=== PATIENT | male | born 1965 | race Caucasian/White ===

== ENCOUNTER 2025-05-14 01:47 | Day surgery (SDC) | payer MEDICARE, SELFPAY ==
--- OUTSIDE RECORDS SUMMARY | 2024-04-10 09:30 | XMS_ITS ---
Author Organization [facility] Address [address] [address] Care Team Providers Care Workforce Planner Name Role Phone Dung Alves Unavailable [phone] Problems Problem Type SNOMED Code ICD Code Onset Dates Problem Status W/U Status Risk Notes Problem Chronic kidney disease stage 2 (565015427) Chronic kidney disease, stage 2 (mild) (N18.2) Active confirmed Encounters Encounter Location Date Provider Diagnosis [facility] [address] [place] [address] 04/10/2024 Dung Alves Chronic kidney disea se, [...] unspecified (ICD-10 - I50.9) Plan Of Treatment Next Appt Details Provider Name:Dung Alves , 05/19/2025 02:30:00 PM, [address] [facility], [address], [place], [address], Progress Notes * Alexys COUCHDOB: [birth year] (60 yo F)Acc No.[id number]:04/10/2024 Progress Notes Patient: Alexys DAMICO Provider: Vee GOULD MD, F.A.C.P, F.A.S.N. :1965 A ge:59 Y S ex:Female Date:04/10/2024 Address:[address] [place] [address] Subjective: * Chief Complaints: * * Medical [...] Electronic signature of Venu Alves MD on 05/14/2025 at 01:51 AM CDT Sign off status: Pending * Provider: Vee GOULD MD, F.William.C.P, F.A.S.N. Date: 04/10/2024 Generated for Printing/Faxing/eTransmitting on: 0 05/14/2025 01:51 AM CDT
--- OUTSIDE RECORDS SUMMARY | 2024-06-12 09:30 | XMS_ITS ---
Author Organization [facility] Address [address] [place] [address] Care Team Providers Care Gunner'S Mate G Name Role Phone Long Dung Unavailable [phone] Medications Medication SIG (Take, Route, Frequency, Duration) Notes Start Date End Date Status Ergocalciferol 1.25 MG (28120 UT) 1 capsule Orally Once a week; Duration: 90 day(s) 12/06/2023 08/31/2024 Active Losartan Potassium 50 MG 1 tablet Orally Once a day; Duration: 90 12/06/2023 Active Calcitriol 0.25 MCG 1 capsule Orally Onc e a day; Duration: 90 day(s) 12/06/2023 08/31/2024 Active Encounters Encounter Location Date Provider Diagnosis [place] [facility] [address] [facility] 15 [place] [address] 06/12/2024 Dung Alves Chronic kidney disease, stage [...] Name:Dung Alves , 05/19/2025 02:30:00 PM, [address] [facility], [address], [place], [address], Progress Notes * Alexys COUCHDOB: [birth year] (60 yo F)Acc No.[id number]:06/12/2024 Progress Notes Patient: Alexys DAMICO Provider: Vee GOULD MD, F.A.C.P, F.A.S.N. :1965 A ge:59 Y S ex:Female Date:06/12/2024 Address:[address] [place] [address] Subjective: * Chief Complaints: * * Medical History: * Medications: T aking Ergocalciferol 1.25 MG (76068 UT) Capsule 1 capsule Orally Once a [...] Treatment: * Billing Information: * Visit Code: 33464 Office Visit, Est Pt., Level 4. * Procedure Codes: * Electronic signature of Venu Alves MD on 05/14/2025 at 01:50 AM CDT Sign off status: Pending * Provider: Vee GOULD MD, F.A.C.P, F.A.S.N. Date: Generated for Printing/Faxing/eTransmitting on: 0 05/14/2025 01:50 AM CDT
--- OUTSIDE RECORDS SUMMARY | 2024-08-19 11:00 | XMS_ITS ---
Author Organization [facility] Address [address] [place] [address] Care Team Providers Care Art Historian Name Role Phone Dung Alves Unavailable [phone] Medications Medication SIG (Take, Route, Frequency, Duration) Notes Start Date End Date Status Losartan Potassium 50 MG 1 tablet Orally Once a day; Duration: 90 12/06/2023 Active Vitamin D (Ergocalciferol) 1.25 MG (92780 UT) TAKE 1 CAPSULE BY MOUTH 1 TIME A WEEK; Duration: 91 Active Calcitriol 0.25 MCG 1 capsule Orally Onc e a day; Duration: 90 day(s) 12/06/2023 08/31/2024 Active Vitamin D (Ergocalciferol) 72834 UNIT 1 capsule Orally twice a week; Duration: 30 days 06/19/2024 10/16/2024 Active Problems Problem Type SNOMED Code ICD Code Onset Dates Problem Status W/U Status Risk Notes Problem Type II diabetes mellitus without complication (750571719) Type 2 diabetes mellitus without complications (E11.9) Active confirmed Encounters Encounter Location Date Provider Diagnosis [place] [facility] [address] [facility] 15 [place] [address] 08/19/2024 Dung Alves Chronic kidney disease, stage [...] unspecified (ICD-10 - R80.9) Plan Of Treatment Next Appt Details Provider Name:Dung Alves , 05/19/2025 02:30:00 PM, 2043 [facility], [facility], [place], [address], Progress Notes * Alexys COUCHDOB: [birth year] (60 yo F)Acc No.[id number]:08/19/2024 Progress Notes Patient: Alexys DAMICO Provider: Vee GOULD MD, F.William.C.P, F.A.S.N. :1965 A ge:59 Y S ex:Female Date:08/19/2024 Address:[address] [place] [address] Subjective: * Chief Complaints: * * Medical History: * Medications: T aking Losartan Potassium 50 MG Tablet 1 tablet Orally Once a day , Taking Calcitriol 0.25 MCG Capsule 1 capsule Orally Once a day , stop date 08/31/2024, Taking Vitamin D (Ergocalciferol) 1.25 MG (58756 UT) Capsule TAKE 1 CAPSULE BY MOUTH 1 TIME A WEEK , Taking Vitamin D (Ergocalciferol) 41887 UNIT Capsule 1 capsule Orally twice a week , stop date 10/16/2024 Objective: * Vitals: Assessment: * Assessment: 1. C hronic kidney disease, stage 2 (mild) - N18.2 2 . T ype 2 diabetes mellitus without complications - E11.9 3 . E ssential (primary) hypertension - I10? 4. P roteinuria, unspecified - R80.9 Plan: * Treatment: * Billing Information: * Visit Code: 49703 Office Visit, Est Pt., Level 4. * Procedure Codes: * Electronic signature of Venu Alves MD on 05/14/2025 at 01:50 AM CDT Sign off status: Pending * Provider: Vee GOULD MD, John.William.C.P, F.A.S.N. Date: 10/20/2023 Generated for Printing/Faxing/eTransmitting on: 05/14/2025 01:50 AM CDT
--- OUTSIDE RECORDS SUMMARY | 2024-11-25 09:15 | XMS_ITS ---
Author Organization [facility] Address [address] [place] [address] Care Team Providers Care Boat Detailer Name Role Phone Long Dung Unavailable [phone] Problems Problem Type SNOMED Code ICD Code Onset Dates Problem Status W/U Status Risk Notes Problem Proteinuria (00391636) Proteinuria, unspecified (R80.9) Active confirmed Problem Benign prostatic hypertrophy without outflow obstruction (313175027) Benign prostatic hyperplasia without lower urinary tract symptoms (N40.0) Active confirmed Problem Calculus of kidney (42019887) Calculus of kidney (N20.0) Active confirmed Encounters Encounter Location Date Provider Diagnosis [place] [facility] 2043 [facility] 15 [place] [address] 11/25/2024 Dung Alves Chronic kidney disease, stage [...] kidney (ICD-10 - N20.0) Plan Of Treatment Next Appt Details Provider Name:Dung Alves , 05/19/2025 02:30:00 PM, 2043 [facility], [address], [place], [address], Progress Notes * Alexys COUCHDOB: [birth year] (60 yo F)Acc No.[id number]:11/25/2024 Progress Notes Patient: Alexys DAMICO Provider: Vee GOULD MD, F.A.C.P, F.A.S.N. :1965 A ge:59 Y S ex:Female Date:11/25/2024 Address:[facility] [address] Subjective: * Chief Complaints: * * Medical [...] Treatment: * Billing Information: * Visit Code: 83447 Office Visit, Est Pt., Level 5. * Procedure Codes: * Electronic signature of Venu Alves MD on 05/14/2025 at 01:50 AM CDT Sign off status: Pending * Provider: Vee GOULD MD, F.A.C.P, F.A.S.N. Date: 11/25/2024 Generated for Printing/Faxing/eTransmitting on: 05/14/2025 01:50 AM CDT
--- OUTSIDE RECORDS SUMMARY | 2025-02-24 09:30 | XMS_ITS ---
Author Organization [facility] Address [address] [place] [address] Care Team Providers Care Benefits Sales Consultant Name Role Phone Dung Alves Unavailable [phone] Encounters Encounter Location Date Provider Diagnosis [place] [facility] [address] [facility] [address] [place] [address] 02/24/2025 Dung Alves Chronic kidney disease, stage 2 [...] Treatment Notes Treatment Clinical Notes Section Notes 02/24/2025 Chronic kidney disease, stage 2 (mild) (ICD-10 - N18.2) 02/24/2025 Essential (primary) hypertension (ICD-10 - I10) 02/24/2025 Type 2 diabetes mellitus without complications (ICD-10 - E11.9) 02/24/2025 Obesity, unspecified (ICD-10 - E66.9) 02/24/2025 Heart failure, unspecified (ICD-10 - I50.9) 02/24/2025 Proteinuria, unspecified (ICD-10 - R80.9) 02/24/2025 Benign prostatic hyperplasia without lower urinary tract symptoms (ICD-10 - N40.0) 02/24/2025 Calculus of kidney (ICD-10 - N20.0) Plan Of Treatment Next Appt Details Provider Name:Dung Alves , 05/19/2025 02:30:00 PM, 2043 [facility], [address], [place], [address], Progress Notes * Alexys COUCHDOB: [birth year] (60 yo F)Acc No.[id number]:02/24/2025 Progress Notes Patient: Alexys DAMICO Provider: Vee GOULD MD, JosefinaP, F.A.S.N. :1965 A ge:59 Y S ex:Female Date:02/24/2025 Address:[address] [place], [place] [email or web address] [address] Subjective: * Chief Complaints: * * Medical [...] Treatment: * Billing Information: * Visit Code: 42132 Office Visit, Est Pt., Level 4. * Procedure Codes: * Electronic signature of Venu Alves MD on 05/14/2025 at 01:50 AM CDT Sign off status: Pending * Provider: Vee GOULD MD, John.William.Navid.P, F.A.S.N. Date: 02/24/2025 Generated for Printing/Faxing/eTransmitting on: 0 05/14/2025 01:50 AM CDT
--- OUTSIDE RECORDS SUMMARY | 2025-05-14 01:51 | XMS_ITS | Clinical Summary ---
Author Organization [facility] Address [address] [facility] [place] [address] Care Team Providers Care Sales Support Assistant Name Role Phone Elmira Estevez SEGUNDO-TRAFFIC OR SYSTEM DISPATCHER Primary Care Provider [phone] Source Comments [facility],non-owned Affiliates and Associated Physician Practices is amultiple site organization consisting of ambulatory clinics and hospital sitesin [place], [place], [place] and [place]. This disclosure is being madepursuant to the Care Everywhere program and may not contain all information available regarding this patient. Last updated 18.[facility] Allergies No known active allergies Medications * Be aware that medications may not be up to date on this document. Alwaysverify current medications with the patient. tamsulosin (Flomax) 0.4 MG capsule 3 Active levothyroxine (Synthroid) 75 MCG tablet Take 1 (one) tablet by mouth every morning 3 Active FeroSul 325 (65 Fe) MG tablet Take 1 (one) tablet by mouth 2 times daily 3 Active omeprazole (PriLOSEC) 20 MG capsule Take 1 (one) capsule by mouth daily before breakfast 3 Active atorvastatin (Lipitor) 20 MG tablet TAKE 1 TABLET BY MOUTH EVERY OTHER DAY AT BEDTIME 3 Active meloxicam (Mobic) 7.5 MG tablet TAKE 1 TABLET BY MOUTH EVERY DAY WITH FOOD NEEDED 3 Active ascorbic acid (VITAMIN C) 500 MG tablet Take 1 (one) tablet by mouth once daily 2 Active losartan (Cozaar) 25 MG tablet Take 1 (one) tablet by mouth once daily 3 Active metFORMIN ER 24hr (Glucophage XR) 500 MG tablet Take 1 (one) tablet by mouth 3 times daily before meals 3 Active albuterol HFA (Proventil; Ventolin; Proair) 108 (90 Base) MCG/ACT inhaler Inhale 2 (two) puffs by mouth every 4 hours as needed 3 Active Ozempic, 2 MG/DOSE, 8 MG/3ML pen INJECT 2 MG UNDER THE SKIN ONCE WEEKLY AT DINNER FOR 90 DAYS. 3 Active Social History Tobacco Use Types Packs/Day Years Used Date Smoking Tobacco: Never Passive Smoke Exposure: Never Smokeless Tobacco: Never Tobacco Cessation:Counseling Given: Not Answered Sex and Gender Information Value Date Recorded Sex Assigned at Not on file Legal Sex Male 3:53 PM CDT Gender Identity Not on file Sexual Orientation Not on file Last Filed Vital Signs Vital Sign Reading Time Taken Comments Blood Pressure 124/84 08/28/2023 12:30 PM DROP CLIPPER Pulse 85 08/28/2023 12:30 PM DROP CLIPPER Temperature 36.8 C (98.3 F) 08/28/2023 12:30 PM DROP CLIPPER Respiratory Rate - - Oxygen Saturation 97% 08/28/2023 12:30 PM DROP CLIPPER Inhaled Oxygen Concentration - - Weight 145.2 kg (320 lb) 08/28/2023 12:30 PM DROP CLIPPER Height 182.9 cm (6') 08/28/2023 12:30 PM DROP CLIPPER Body Mass Index 43.4 08/28/2023 12:30 PM DROP CLIPPER Plan of Treatment Health Maintenance Due Date Last Done Comments COLOGUARD (AGES 45-75) - COLON CA SCREENING 1966 CT COLONOGRAPHY - COLON CA SCREENING 1966 FIT - COLON CA SCREENING 1966 FLEX SIG - COLON CA SCREENING 1966 HIV SCREENING 1981 HEPATITIS C SCREENING 02/28/1984 DTAP/TDAP/TD VACCINES (1 - Tdap) 1985 HEPATITIS B VACCINE (1 of 3 - 19+ 3-dose series) 1985 PNEUMOCOCCAL VACCINE 50+ (1 of 1 - PCV) 2016 ZOSTER VACCINE (1 of 2) 2016 SCREENING FOR DIABETES 07/26/2023 COVID-19 VACCINE (3 - 2024-25 season) 2024 01/05/2021, 12/05/2020 DEPRESSION SCREENING 09/09/2024 MEDICARE AWV CALENDAR YEAR 2024 INFLUENZA VACCINE (#1) 2025 3, 08/07/2022, 08/01/2021, Additional history exists COLON MONITORING 03/29/2030 03/29/2020 COLONOSCOPY - COLON CA SCREENING 03/29/2030 03/29/2020 Colorectal Cancer Screening 03/29/2030 HIB VACCINE Aged Out No longer eligi ble based on patient's age to complete this topic HPV VACCINE Aged Out No longer eligi ble based on patient's age to complete this topic MENINGOCOCCAL (Group B) VACCINE SHARED DECISION-MAKING Aged Out No longer eligible based on patient's age to complete this topic MENINGOCOCCAL GROUPS A/C/Y/W VACCINE Aged Out No longer eligible based on patient's age to complete this topic Insurance [facility] Care Teams Sales Support Assistant Relationship Specialty Start Date End Date Elmira Estevez APRN-ILIANA [address] [place] [address] PCP - General Nurse Practitioner Family 07/26/23
--- OUTSIDE RECORDS SUMMARY | 2025-05-14 01:51 | XMS_ITS | Patient Health Record ---
Author Organization [facility] Address [address] [place] [address] Care Team Providers Care Package Lift Operator Name Role Phone Dung Alves Unavailable [phone] Reason For Referral No Information Medications Medication SIG (Take, Route, Frequency, Duration) Notes Start Date End Date Status Losartan Potassium 50 MG 1 tablet Orally Once a day; Duration: 90 12/06/2023 Active Calcitriol 0.25 MCG TAKE 1 CAPSULE BY MO UTH DAILY; Duration: 90 Active Vitamin D (Ergocalciferol) 1.25 MG (04016 UT) TAKE 1 CAPSULE BY MOUTH 2 TIMES A WEEK; Duration: 28 Activ e Problems Problem Type SNOMED Code ICD Code Onset Dates Problem Status W/U Status Risk Notes Problem Type II diabetes mellitus without complication (402545421) Type 2 diabetes mellitus without complications (E11.9) Active confirmed Problem Obesity (326674331) Obesity, unspecified (E66.9) Active confirmed Problem Essential hypertension (24060939) Essential (primary) hypertension (I10) Active confirmed Problem Heart failure (57362087) Heart failure, unspecified (I50.9) Active confirmed Problem Chronic kidney disease stage 2 (056826530) Chronic kidney disease, stage 2 (mild) (N18.2) Active confirmed Problem Calculus of kidney (24004933) Calculus of kidney (N20.0) Active confirmed Problem Proteinuria (94454787) Proteinuria, unspecified (R80.9) Active confirmed Problem Benign prostatic hypertrophy without outflow obstruction (813390897) Benign prostatic hyperplasia without lower urinary tract symptoms (N40.0) Active confirmed Encounters Encounter Location Date Provider Diagnosis [facility] [address] [facility] [address] [place] [address] 06/12/2024 Dung Alves Chronic kidney disease, stage 3a N18.31 ; Essential (primary) hypertension I10 ; Obesity, unspecified E66.9 ; Chronic kidney disease, stage 2 (mild) N18.2 ; Morbid (severe) obesity due to excess calories E66.01 ; Type 2 diabetes mellitus with hyperglycemia E11.65 and Heart failure, unspecified I50.9 [facility] [address] [place] [address] 08/19/2024 Dung Alves Chronic kidney disease, stage 2 (mild) N18.2 ; Type 2 diabetes mellitus without complications E11.9 ; Essential (primary) hypertension I10 and Proteinuria, unspecified R80.9 [facility] [address] [place] [address] 11/25/2024 Dung Alves Chronic kidney disease, stage 2 (mild) N18.2 ; Essential (primary) hypertension I10 ; Type 2 diabetes mellitus without complications E11.9 ; Obesity, unspecified E66.9 ; Heart failure, unspecified I50.9 ; Proteinuria, unspecified R80.9 ; Benign prostatic hyperplasia without lower urinary tract symptoms N40.0 and Calculus of kidney N20.0 [facility] [address] [place] [address] 02/24/2025 Dung Alves Chronic kidney disease, stage 2 (mild) N18.2 ; Essential (primary) hypertension I10 ; Type 2 diabetes mellitus without complications E11.9 ; Obesity, unspecified E66.9 ; Heart failure, unspecified I50.9 ; Proteinuria, unspecified R80.9 ; Benign prostatic hyperplasia without lower urinary tract symptoms N40.0 and Calculus of kidney N20.0 [facility] [address] [place] [address] 06/19/2024 Dung Alves Assessments Encounter Date Diagnosis (ICD Code) Assessment Notes Treatment Notes Treatment Clinical Notes Section Notes 06/12/2024 Essential (primary) hypertension (ICD-10 - I10) 06/12/2024 Chronic kidney disease, stage 3a (ICD-10 - N18.31) 08/19/2024 Chronic kidney disease, stage 2 (mild) (ICD-10 - N18.2) 11/25/2024 Chronic kidney disease, stage 2 (mild) (ICD-10 - N18.2) 02/24/2025 Chronic kidney disease, stage 2 (mild) (ICD-10 - N18.2) 02/24/2025 Essential (primary) hypertension (ICD-10 - I10) 11/25/2024 Essential (primary) hypertension (ICD-10 - I10) 08/19/2024 Type 2 diabetes mellitus without complications (ICD-10 - E11.9) 06/12/2024 Obesity, unspecified (ICD-10 - E66.9) 06/12/2024 Chronic kidney disease, stage 2 (mild) (ICD-10 - N18.2) 08/19/2024 Essential (primary) hypertension (ICD-10 - I10) 11/25/2024 Type 2 diabetes mellitus without complications (ICD-10 - E11.9) 02/24/2025 Type 2 diabetes mellitus without complications (ICD-10 - E11.9) 02/24/2025 Obesity, unspecified (ICD-10 - E66.9) 11/25/2024 Obesity, unspecified (ICD-10 - E66.9) 08/19/2024 Proteinuria, unspecified (ICD-10 - R80.9) 06/12/2024 Morbid (severe) obesity due to excess calories (ICD-10 - E66.01) 06/12/2024 Type 2 diabetes mellitus with hyperglycemia (ICD-10 - E11.65) 11/25/2024 Heart failure, unspecified (ICD-10 - I50.9) 02/24/2025 Heart failure, unspecified (ICD-10 - I50.9) 11/25/2024 Proteinuria, unspecified (ICD-10 - R80.9) 02/24/2025 Proteinuria, unspecified (ICD-10 - R80.9) 06/12/2024 Heart failure, unspecified (ICD-10 - I50.9) 02/24/2025 Benign prostatic hyperplasia without lower urinary tract symptoms (ICD-10 - N40.0) 11/25/2024 Benign prostatic hyperplasia without lower urinary tract symptoms (ICD-10 - N40.0) 02/24/2025 Calculus of kidney (ICD-10 - N20.0) 11/25/2024 Calculus of kidney (ICD-10 - N20.0) Plan Of Treatment Next Appt Details Provider Name:Dung Singh , 05/19/2025 02:30:00 PM, [address], [place], [address],
--- OUTSIDE RECORDS SUMMARY | 2025-05-14 01:51 | XMS_ITS | Clinical Summary ---
Author Organization [facility] Address [address], [facility] [address] [place] [address] Phone Care Team Providers Care Central Service Technician Name Role Phone Ortiz Nava APRN, WASHTUB WORKER HELPER Unavailable [phone] Javier Zhang MD Primary Care Provider Allergies No known active allergies Medications albuterol 108 (90 Base) MCG/ACT Aerosol Solution take 2 Puffs by inhalation. 04/30/2023 Active ascorbic acid (ASCORBIC ACID) 500 MG Tablet Take 500 mg by mouth daily. 08/10/2022 Active atorvastatin (LIPITOR) 20 MG Tablet TAKE 1 TABLET BY MOUTH EVERY OTHER DAY AT BEDTIME 07/05/2023 Active ferrous sulfate (FeroSul) 325 (65 Fe) MG Tablet Take 325 mg by mouth 2 times daily. 07/16/2023 Active levothyroxine (SYNTHROID) 75 MCG Tablet Take 75 mcg by mouth every morning. 06/01/2023 Active losartan (COZAAR) 25 MG Tablet Take 25 mg by mouth daily. 05/31/2023 Active meloxicam (MOBIC) 7.5 MG Tablet TAKE 1 TABLET BY MOUTH EVERY DAY WITH FOOD NEEDED 06/12/2023 Active metFORMIN (GLUCOPHAGE-XR) 500 MG TABLET SR 24 HR Take 500 mg by mouth. 05/17/2023 Active omeprazole (PriLOSEC) 20 MG CAPSULE DELAYED RELEASE Take 20 mg by mouth. 06/12/2023 Active tamsulosin (FLOMAX) 0.4 MG Capsule 07/25/2023 Active Immunizations Immunization Administration Dates Next Due DTAP-IPV 06/20/2020 Influenza Vaccine, Quadrivalent, PF 06/10/2023,1 10/07/2021,08/01/2021 Influenza, Injectable, Quadrivalent 09/09/2019,1 09/23/2018 Influenza,Split Virus,Trivalent,Injectable,PF 07/30/2024 Zoster Vaccine Recombinant 11/28/2021,09/19/2021 Family History Medical History Relation Name Comments Leukemia/Lymphoma Paternal Grandmother Relation Name Status Comments Paternal Grandmother Alive Social History Tobacco Use Types Packs/Day Years Used Date Smoking Tobacco: Former Cigarettes Smokeless Tobacco: Never Tobacco Cessation:Counseling Given: Not Answered Alcohol Use Standard Drinks/Week Comments Not Currently 0 (1 standard drink = 0.6 oz pur e alcohol) Sexually Active Control Partners Comments Not Currently Sex and Gender Information Value Date Recorded Sex Assigned at Not on file Legal Sex Male 1:22 PM CDT Gender Identity Not on file Sexual Orientation Not on file Last Filed Vital Signs Vital Sign Reading Time Taken Comments Blood Pressure 135/80 02/02/2025 9:49 AM CDT Pulse 78 02/02/2025 9:49 AM CDT Temperature - - Respiratory Rate 18 02/02/2025 9:49 AM CDT Oxygen Saturation 97% 02/02/2025 9:49 AM CDT Inhaled Oxygen Concentration - - Weight 147.9 kg (326 lb) 02/02/2025 9:49 AM CDT Height 182.9 cm (6') 02/02/2025 9:49 AM CDT Body Mass Index 44.21 02/02/2025 9:49 AM CDT Plan of Treatment Upcoming Encounters Date Type Department Care Team (Late st Contact Info) Description 02/15/2026 10:00 AM CDT Office Visit [facility] [address] [place] [address] Ortiz Nava, HOG PUSHER, WASHTUB WORKER HELPER [address] [place] [address] Health Maintenance Due Date Last Done Comments Hepatitis C Virus (HCV) Screening 1966 Hepatitis B Immunization (1 of 3 - 19+ 3-dose series) 1985 Cologuard 2011 Immunochemical Fecal Occult Blood 2011 Pneumococcal Immunization (50+ years) (1 of 1 - PCV) 2016 Influenza Immunization (#1) 05/10/202507/11, 06/10/2023, 08/07/2022, Additional history exists SARS-COV-2 Immunization ( - season) 2025 09/01/2021, 01/05/2021, 12/05/2020 Colonoscopy 03/29/2030 03/29/2020 Colorectal Cancer Screening 03/29/2030 Respiratory Syncytial Virus (RSV) Immunization (Adult) (1 - 1-dose 75+ series) 2041 DTaP/Tdap/Td Immunization Discontinued 06/20/2020 Zoster Immunization Completed 11/28/2021, PSA Discussion Completed 01/04/2025 Human Papillomavirus (HPV) Immunization Aged Out No longer eligible based on patient's age to complete this topic Meningococcal Immunization (ACWY) Aged Out No longer eligible based on patient's age to complete this topic Rotavirus Immunization Aged Out No lo nger eligible based on patient's age to complete this topic Procedures Procedure Name Priority Date/Time Associated Diagnosis Comments PSA SCREEN Routine 01/04/2025 12:14 PM CDT Encounter for prostate cancer screening from Last 3 Months or Most Recently Relevant to Health Maintenance Results * PSA SCREEN (01/04/2025 12:14 PM CDT) PSA SCREEN, TOTAL 0.44 <4.00 ng/mL 01/04/2025 2:[address] [facility] Blood Venipuncture / Unknown 01/04/2025 12:14 PM CDT 01/04/2025 1:[address] [facility] - 01/04/2025 2:19 PM CDT The ALINITY Total PSA assay is a Chemiluminescent Microparticle Immunoassay (CMIA) for the quantitative determination of total PSA (both free PSA and PSA complexed to [id number]) in human serum. Total PSA values obtained with different assay methods, including Mccullough PSA assays, cannot be used interchangeably. Ortiz Nava APRN, WASHTUB WORKER HELPER CHEMISTRY ORDERABLES F inal Result [facility] [address] [place] [address] from Last 3 Months or Most Recently Relevant to Health Maintenance Insurance MEDICARE C [employer] Care Teams Central Service Technician Relationship Specialty Start Date End Date Javier Zhang MD [address] [place] [address] PCP - General Internal Medicine 01/04/25 Ortiz Nava APRN, WASHTUB WORKER HELPER [address] [place] [address] Nurse Practitioner Advanced Practice Nurse 12/31/24
[2025-05-14 09:26] VITALS: BP 140/70; PULSE 75; RESP 18; TEMP 36.8; O2SAT 98
--- NOTE | 2025-05-14 09:29 | WPDANESEPPF ---
Anes - Initial Pre Proc Eval Procedure: Operation Date: 05/14/25 11:00 Proposed Procedures p EGD & Screening Colonoscopy - Saroj Javed MD Date/Time: 05/14/25 09:29 Surgeon: Saroj Javed MD Pre Op Diagnosis: Screening, GERD Patient Data Age: 60 Gender: M Height: Weight: 130.4 kg Last Vital Signs Temp 36.8 C 05/14/25 09:26 Pulse 75 05/14/25 09:26 Resp 18 05/14/25 09:26 BP 140/70 05/14/25 09:26 Pulse Ox 98 05/14/25 09:26 O2 Del Method Room Air 05/14/25 09:26 Allergies Allergy/AdvReac Type Severity Reaction Status Date / Time No Known Drug Allergies Allergy no known Verified 05/04/25 13:40 allergies Home Medications ?Medication ?Instructions ?Recorded ?Confirmed ?Type ascorbic acid (vitamin C) 500 mg 500 mg PO BID 05/04/25 05/14/25 History tablet (C-500) atorvastatin 20 mg tablet 20 mg PO .COMPLEX 05/04/25 05/14/25 History calcitriol 0.25 mcg capsule 0.25 mcg PO Q12H 05/04/25 05/14/25 History ergocalciferol (vitamin D2) 1,250 1,250 mcg PO WEEKLY 05/04/25 05/14/25 History mcg (50,000 unit) capsule ferrous sulfate 325 mg (65 mg 65 mg PO BID 05/04/25 05/14/25 History iron) tablet (FeroSul) levothyroxine 75 mcg tablet 75 mcg PO DAILY 05/04/25 05/14/25 History losartan 50 mg tablet 25 mg PO DAILY 05/04/25 05/14/25 History lysine 500 mg tablet (L-Lysine) 500 mg PO DAILY 05/04/25 05/14/25 History metformin 750 mg tablet,extended 750 mg PO BID 05/04/25 05/14/25 History release 24 hr omeprazole 20 mg capsule,delayed 20 mg PO DAILY 05/04/25 05/04/25 History release tamsulosin 0.4 mg capsule 0.4 mg PO Q24H 05/04/25 05/14/25 History tirzepatide 15 mg/0.5 mL 15 mg subcut WEEKLY 05/04/25 05/14/25 History subcutaneous pen injector (Mounmeghannro) vitamin E 200 unit capsule 180 mg PO DAILY 05/04/25 05/14/25 History Patient hx anesthesia problems: none Family hx anesthesia problems: none Results Review: All pre-operative results and documents have been reviewed as part of the pre-operative evaluation. [facility] Past Medical History Medical History (Updated 05/13/25 @ 15:59 by Bhavik Hernandez DO) Hypothyroidism Diabetes type 2, controlled ARNALDO (obstructive sleep apnea) COPD (chronic obstructive pulmonary disease) Hyperlipidemia Hypertension Social History Social History Smoking status: Former smoker Alcohol intake: former Alcohol use details: 2006 Substance use: never Substance use type: does not use Living arrangements: alone Spiritual care concerns: No Anes - Eval Final PreProcedure Day of Procedure 05/14/25 09:29 Patient weight: obese Heart: regular rate and rhythm Lungs: clear to auscultation Airway: Mallampati scale class II Neurological: alert and oriented Last oral intake: >/= 8 hours ASA classification: III Emergent: no Anesthetic plan: proceed Anesthesia type and monitoring: general GIVS and standard monitoring Results Review: All pre-operative results and documents have been reviewed as part of the pre-operative evaluation. Informed Consent: The patient's anesthetic plan and its attendant risks and benefits were discussed with the patient/family/POA. Questions were solicited and answers provided to the satisfaction of the patient/family/POA.
[2025-05-14] MEDS: LACTATED RINGERS 1,000 ML 150 ML IV CONT (09:35)
--- NOTE | 2025-05-14 09:48 | PM.HPGS ---
History of Present Illness History of Present Illness Consent: Risks, benefits, and alternatives have been discussed and questions answered. Patient agrees to proceed with procedure. Chief complaint: Screening, GERD Narrative: Alexys Wild is a 60 year old male here for egd and colonoscopy, last one 10 year ago, h/o gerd controlled with ppi Review of Systems Review of Systems: All systems reviewed & are unremarkable except as noted in HPI and below PMFSH Past Medical History Medical History (Updated 05/14/25 @ 09:48 by Saroj Javed MD) Colon cancer screening GERD (gastroesophageal reflux disease) Hypothyroidism Diabetes type 2, controlled ARNALDO (obstructive sleep apnea) COPD (chronic obstructive pulmonary disease) Hyperlipidemia Hypertension Social History Social History Smoking status: Former smoker Alcohol intake: former Alcohol use details: 2006 Substance use: never Substance use type: does not use Living arrangements: alone Spiritual care concerns: No Meds Home Medications and Allergies Home Medications ?Medication ?Instructions ?Recorded ?Confirmed ?Type ascorbic acid (vitamin C) 500 mg 500 mg PO BID 05/04/25 05/14/25 History tablet (C-500) atorvastatin 20 mg tablet 20 mg PO .COMPLEX 05/04/25 05/14/25 History calcitriol 0.25 mcg capsule 0.25 mcg PO Q12H 05/04/25 05/14/25 History ergocalciferol (vitamin D2) 1,250 1,250 mcg PO WEEKLY 05/04/25 05/14/25 History mcg (50,000 unit) capsule ferrous sulfate 325 mg (65 mg 65 mg PO BID 05/04/25 05/14/25 History iron) tablet (FeroSul) levothyroxine 75 mcg tablet 75 mcg PO DAILY 05/04/25 05/14/25 History losartan 50 mg tablet 25 mg PO DAILY 05/04/25 05/14/25 History lysine 500 mg tablet (L-Lysine) 500 mg PO DAILY 05/04/25 05/14/25 History metformin 750 mg tablet,extended 750 mg PO BID 05/04/25 05/14/25 History release 24 hr omeprazole 20 mg capsule,delayed 20 mg PO DAILY 05/04/25 05/04/25 History release tamsulosin 0.4 mg capsule 0.4 mg PO Q24H 05/04/25 05/14/25 History tirzepatide 15 mg/0.5 mL 15 mg subcut WEEKLY 05/04/25 05/14/25 History subcutaneous pen injector (Tutu) vitamin E 200 unit capsule 180 mg PO DAILY 05/04/25 05/14/25 History Allergies Allergy/AdvReac Type Severity Reaction Status Date / Time No Known Drug Allergies Allergy no known Verified 05/04/25 13:40 allergies Vital Signs Vital Signs - 24 hr 05/14/25 09:26 Temperature 98.2 F Pulse Rate 75 Respiratory Rate 18 Blood Pressure 140/70 Pulse Oximetry 98 Oxygen Delivery Room Air Exam Const: General: comfortable and no acute distress HENMT: Face/Nose/Sinus: Normal nares present Eyes: General: appearance normal, both eyes and all related structures Neck: Neck: no JVD Resp: Auscultation: clear to auscultation bilaterally Cardio: Rate: regular rate Rhythm: regular rhythm GI: Inspection: non-distended GI Palp: Yes Soft to palpation Skin: General skin exam: normal color Neuro: Speech: normal speech Extrem: General: normal to inspection Psych: Mental Status: mental status grossly normal Assessment and Plan Assessment and plan (1) GERD (gastroesophageal reflux disease): Code(s): K21.9 - Gastro-esophageal reflux disease without esophagitis Status: Acute Assessment and Plan: egd (2) Colon cancer screening: Code(s): Z12.11 - Encounter for screening for malignant neoplasm of colon Status: Acute Assessment and Plan: colonoscopy
--- NOTE | 2025-05-14 09:58 | SUR.OPER ---
EGD end 954 COLONOSCOPY START 957
--- NOTE | 2025-05-14 10:08 | S_PTH ---
PATIENT: Alexys Wild LOC: [facility]#:[id number] AGE/SX: 60/M ROOM: RE05/14/[address]: Saroj Javed MD : 1965 BED: DIS: 05/14/2025 SPEC #: [id number] RECD: 05/14/25 11:23 STATUS: TINO REVerna #: [id number] BIRD: 05/14/25 10:[address]: Saroj Javed DEPT: [facility] Surgical RECD BY: Ethel Calvin ENTERED: 05/14/25 11:23 SP TYPE: Surgical OTHR DR: Javier ZhangMD Tissues: A - Colon Polypectomy B - Gastric Biopsy Procedures: Hematoxylin and Eosin Stain Gross and Microscopic Level 4 H.Pylori
[2025-05-14 10:10] VITALS: BP 105/66; PULSE 72; RESP 20; O2SAT 97
[2025-05-14 10:20] VITALS: BP 107/62; PULSE 70; RESP 20; O2SAT 99
[2025-05-14 10:30] VITALS: BP 123/67; PULSE 70; RESP 20; O2SAT 100
== END 2025-05-14 10:44 | disposition home or self-care (01) ==
PROVIDERS: PCP Internal Medicine; Referring Provider Internal Medicine Gastroenterology; Visit Provider Internal Medicine Gastroenterology
PROC: 0DJ08ZZ Inspection of Upper Intestinal Tract, Via Natural or Artificial Opening Endoscopic (ICD-10-PCS; CPT 45378; principal; 2025-05-14 11:00)
DX: Z12.11 Encounter for screening for malignant neoplasm of colon (principal); D12.5 Benign neoplasm of sigmoid colon; K57.30 Diverticulosis of large intestine without perforation or abscess without bleeding; K64.8 Other hemorrhoids; K21.9 Gastro-esophageal reflux disease without esophagitis; K29.50 Unspecified chronic gastritis without bleeding; B96.81 Helicobacter pylori [H. pylori] as the cause of diseases classified elsewhere; E11.9 Type 2 diabetes mellitus without complications; Z87.891 Personal history of nicotine dependence
CPT/HCPCS: 45385; 43239; 82948; 88305; 88342; J2704; J7120

== ENCOUNTER 2025-06-29 10:18 | Outpatient (CLI) | payer MEDICARE, SELFPAY ==
--- OUTSIDE RECORDS SUMMARY | 2024-03-18 09:45 | XMS_ITS ---
Author Organization [facility] Address [address] [place] [address] Care Team Providers Care Molded Frames Assembler Name Role Phone Long Dung Unavailable [phone] Medications Medication SIG (Take, Route, Frequency, Duration) Notes Start Date End Date Status Calcitriol 0.25 MCG 1 capsule Orally Onc e a day; Duration: 90 day(s) 12/06/2023 08/31/2024 Active Losartan Potassium 50 MG 1 tablet Orally Once a day; Duration: 90 12/06/2023 Active Ergocalciferol 1.25 MG (79261 UT) 1 capsule Orally Once a week; Duration: 90 day(s) 12/06/2023 08/31/2024 Active Encounters Encounter Location Date Provider Diagnosis [place] [facility] [facility] 15 [place] [address] 03/18/2024 Dung Alves Chronic kidney disease, stage 3a N18.31 ; Essential (primary) hypertension I10 ; Obesity, unspecified E66.9 ; Morbid (severe) obesity due to excess calories E66.01 ; Type 2 diabetes mellitus with hyperglycemia E11.65 and Heart failure, unspecified I50.9 Assessments Encounter Date Diagnosis (ICD Code) Assessment Notes Treatment Notes Treatment Clinical Notes Section Notes 03/18/2024 Chronic kidney disease, stage 3a (ICD-10 - N18.31) 03/18/2024 Essential (primary) hypertension (ICD-10 - I10) 03/18/2024 Obesity, unspecified (ICD-10 - E66.9) 03/18/2024 Morbid (severe) obesity due to excess calories (ICD-10 - E66.01) 03/18/2024 Type 2 diabetes mellitus with hyperglycemia (ICD-10 - E11.65) 03/18/2024 Heart failure, unspecified (ICD-10 - I50.9) Plan Of Treatment No Information Progress Notes * Alexys COUCHDOB: [birth year] (60 yo F)Acc No.[id number]:03/18/2024 Progress Notes Patient: Alexys DAMICO Provider: Vee GOULD MD, John.William.Navid.P, F.A.S.N. :1965 A ge:59 Y S ex:Female Date:03/18/2024 Address:[address] [place] [address] Subjective: * Chief Complaints: * * Medical History: * Medications: T aking Ergocalciferol 1.25 MG (45975 UT) Capsule 1 capsule Orally Once a week , stop date 08/31/2024, Taking Losartan Potassium 50 MG Tablet 1 tablet Orally Once a day , Taking Calcitriol 0.25 MCG Capsule 1 capsule Orally Once a day , stop date 08/31/2024 Objective: * Vitals: Assessment: * Assessment: 1. C hronic kidney disease, stage 3a - N18.31 (Primary) 2 . E ssential (primary) hypertension - I10 3 . O besity, unspecified - E66.9 4 .?Morbid (severe) obesity due to excess calories - E66.01 5 . T ype 2 diabetes mellitus with hyperglycemia - E11.65 6 . H eart failure, unspecified - I50.9? Plan: * Treatment: * Billing Information: * Visit Code: 65439 Office Visit, Est Pt., Level 4. * Procedure Codes: * Electronic signature of Venu Alves MD on 06/29/2025 at 12:26 PM CDT Sign off status: Pending * Provider: Vee GOULD MD, F.William.Navid.P, F.A.S.N. Date: 0 03/18/2024 Generated for Printing/Faxing/eTransmitting on: 1 12:26 PM CDT
--- OUTSIDE RECORDS SUMMARY | 2024-04-10 09:30 | XMS_ITS ---
Author Organization [facility] Address [address] [address] Care Team Providers Care Drycleaner Name Role Phone Meredith Alveserjit Unavailable [phone] Problems Problem Type SNOMED Code ICD Code Onset Dates Problem Status W/U Status Risk Notes Problem Chronic kidney disease stage 2 (139382789) Chronic kidney disease, stage 2 (mild) (N18.2) Active confirmed Encounters Encounter Location Date Provider Diagnosis [facility] [address] [place] [address] 04/10/2024 Dung Alves Chronic kidney disea se, stage 2 (mild) N18.2 ; Essential (primary) hypertension I10 ; Obesity, unspecified E66.9 ; Morbid (severe) obesity due to excess calories E66.01 ; Type 2 diabetes mellitus with hyperglycemia E11.65 and Heart failure, unspecified I50.9 Assessments Encounter Date Diagnosis (ICD Code) Assessment Notes Treatment Notes Treatment Clinical Notes Section Notes 04/10/2024 Chronic kidney disease, stage 2 (mild) (ICD-10 - N18.2) 04/10/2024 Essential (primary) hypertension (ICD-10 - I10) 04/10/2024 Obesity, unspecified (ICD-10 - E66.9) 04/10/2024 Morbid (severe) obesity due to excess calories (ICD-10 - E66.01) 04/10/2024 Type 2 diabetes mellitus with hyperglycemia (ICD-10 - E11.65) 04/10/2024 Heart failure, unspecified (ICD-10 - I50.9) Plan Of Treatment No Information Progress Notes * Alexys COUCHDOB: [birth year] (60 yo F)Acc No.[id number]:04/10/2024 Progress Notes Patient: Alexys DAMICO Provider: Vee GOULD MD, F.A.C.P, F.A.S.N. :1965 A ge:59 Y S ex:Female Date:04/10/2024 Address:[address] [place] [address] Subjective: * Chief Complaints: * * Medical History: Objective: * Vitals: Assessment: * Assessment: 1. C hronic kidney disease, stage 2 (mild) - N18.2 2 . E ssential (primary) hypertension - I10 3 . O besity, unspecified - E66.9 4 . M orbid (severe) obesity due to excess calories - E66.01 5 . T ype 2 diabetes mellitus with hyperglycemia - E11.65 6 . H eart failure, unspecified - I50.9 ? Plan: * Treatment: * Billing Information: * Visit Code: * Procedure Codes: * Electronic signature of Venu Alves MD on 06/29/2025 at 12:27 PM CDT Sign off status: Pending * Provider: Vee GOULD MD, F.A.C.P, F.A.S.N. Date: 0 04/10/2024 Generated for Printing/Faxing/eTransmitting on: 1 12:27 PM CDT
--- OUTSIDE RECORDS SUMMARY | 2024-06-12 09:30 | XMS_ITS ---
Author Organization [facility] Address [address] [place] [address] Care Team Providers Care Physical Education Instructor Name Role Phone Long Dung Unavailable [phone] Medications Medication SIG (Take, Route, Frequency, Duration) Notes Start Date End Date Status Ergocalciferol 1.25 MG (67864 UT) 1 capsule Orally Once a week; Duration: 90 day(s) 12/06/2023 08/31/2024 Active Losartan Potassium 50 MG 1 tablet Orally Once a day; Duration: 90 12/06/2023 Active Calcitriol 0.25 MCG 1 capsule Orally Onc e a day; Duration: 90 day(s) 12/06/2023 08/31/2024 Active Encounters Encounter Location Date Provider Diagnosis [place] [facility] 2043 [facility] 15 [place] [address] 06/12/2024 Dung Alves Chronic kidney disease, stage 3a N18.31 ; Essential (primary) hypertension I10 ; Obesity, unspecified E66.9 ; Chronic kidney disease, stage 2 (mild) N18.2 ; Morbid (severe) obesity due to excess calories E66.01 ; Type 2 diabetes mellitus with hyperglycemia E11.65 and Heart failure, unspecified I50.9 Assessments Encounter Date Diagnosis (ICD Code) Assessment Notes Treatment Notes Treatment Clinical Notes Section Notes 06/12/2024 Chronic kidney disease, stage 3a (ICD-10 - N18.31) 06/12/2024 Essential (primary) hypertension (ICD-10 - I10) 06/12/2024 Obesity, unspecified (ICD-10 - E66.9) 06/12/2024 Chronic kidney disease, stage 2 (mild) (ICD-10 - N18.2) 06/12/2024 Morbid (severe) obesity due to excess calories (ICD-10 - E66.01) 06/12/2024 Type 2 diabetes mellitus with hyperglycemia (ICD-10 - E11.65) 06/12/2024 Heart failure, unspecified (ICD-10 - I50.9) Plan Of Treatment No Information Progress Notes * Alexys COUCHDOB: [birth year] (60 yo F)Acc No.[id number]:06/12/2024 Progress Notes Patient: Alexys DAMICO Provider: Vee GOULD MD, F.A.C.P, F.A.S.N. :1965 A ge:59 Y S ex:Female Date:06/12/2024 Address:[address] [place] [address] Subjective: * Chief Complaints: * * Medical History: * Medications: T aking Ergocalciferol 1.25 MG (51805 UT) Capsule 1 capsule Orally Once a [...] . O besity, unspecified - E66.9 4 .?Chronic kidney disease, stage 2 (mild) - N18.2 5 . M orbid (severe) obesity due to excess calories - E66.01 6 . T ype 2 diabetes mellitus with hyperglycemia - E11.65 7 . H eart failure, unspecified - I50.9 Plan: * Treatment: * Billing Information: * Visit Code: 61610 Office Visit, Est Pt., Level 4. * Procedure Codes: * Electronic signature of Venu Alves MD on 06/29/2025 at 12:26 PM CDT Sign off status: Pending * Provider: Vee GOULD MD, F.William.C.P, F.A.S.N. Date: Generated for Printing/Faxing/eTransmitting on: 12:26 PM CDT
--- OUTSIDE RECORDS SUMMARY | 2024-08-19 11:00 | XMS_ITS ---
Author Organization [facility] Address [address] [place] [address] Care Team Providers Care Honeycomb Blanket Maker Name Role Phone Long Dung Unavailable [phone] Medications Medication SIG (Take, Route, Frequency, Duration) Notes Start Date End Date Status Losartan Potassium 50 MG 1 tablet Orally Once a day; Duration: 90 12/06/2023 Active Vitamin D (Ergocalciferol) 1.25 MG (50154 UT) TAKE 1 CAPSULE BY MOUTH 1 TIME A WEEK; Duration: 91 Active Calcitriol 0.25 MCG 1 capsule Orally Onc e a day; Duration: 90 day(s) 12/06/2023 08/31/2024 Active Vitamin D (Ergocalciferol) 14280 UNIT 1 capsule Orally twice a week; Duration: 30 days 06/19/2024 10/16/2024 Active Problems Problem Type SNOMED Code ICD Code Onset Dates Problem Status W/U Status Risk Notes Problem Type II diabetes mellitus without complication (405355813) Type 2 diabetes mellitus without complications (E11.9) Active confirmed Encounters Encounter Location Date Provider Diagnosis [place] [facility] 20[address] [facility] 15 [place] [address] 08/19/2024 Dung Alves Chronic kidney disease, stage 2 (mild) N18.2 ; Type 2 diabetes mellitus without complications E11.9 ; Essential (primary) hypertension I10 and Proteinuria, unspecified R80.9 Assessments Encounter Date Diagnosis (ICD Code) Assessment Notes Treatment Notes Treatment Clinical Notes Section Notes 08/19/2024 Chronic kidney disease, stage 2 (mild) (ICD-10 - N18.2) 08/19/2024 Type 2 diabetes mellitus without complications (ICD-10 - E11.9) 08/19/2024 Essential (primary) hypertension (ICD-10 - I10) 08/19/2024 Proteinuria, unspecified (ICD-10 - R80.9) Plan Of Treatment No Information Progress Notes * Alexys COUCHDOB: [birth year] (60 yo F)Acc No.[id number]:08/19/2024 Progress Notes Patient: Alexys DAMICO Provider: Vee GOULD MD, John.William.Navid.P, F.A.S.N. :1965 A ge:59 Y S ex:Female Date:08/19/2024 Address:[address] [place] [address] Subjective: * Chief Complaints: * * Medical History: * Medications: T aking Losartan Potassium 50 MG Tablet 1 tablet Orally Once a day , Taking Calcitriol 0.25 MCG Capsule 1 capsule Orally Once a day , stop date 08/31/2024, Taking Vitamin D (Ergocalciferol) 1.25 MG (45406 UT) Capsule TAKE 1 CAPSULE BY MOUTH 1 TIME A WEEK , Taking Vitamin D (Ergocalciferol) 10164 UNIT Capsule 1 capsule Orally twice a week , stop date 10/16/2024 Objective: * Vitals: Assessment: * Assessment: 1. C hronic kidney disease, stage 2 (mild) - N18.2 2 . T ype 2 diabetes mellitus without complications - E11.9 3 . E ssential (primary) hypertension - I10? 4. P roteinuria, unspecified - R80.9 Plan: * Treatment: * Billing Information: * Visit Code: 37565 Office Visit, Est Pt., Level 4. * Procedure Codes: * Electronic signature of Venu Alves MD on 06/29/2025 at 12:26 PM CDT Sign off status: Pending * Provider: Vee GOULD MD, John.William.Navid.P, F.A.S.N. Date: 10/20/2023 Generated for Printing/Faxing/eTransmitting on: 12:26 PM CDT
--- OUTSIDE RECORDS SUMMARY | 2024-11-25 09:15 | XMS_ITS ---
Author Organization [facility] Address [address] [place] [address] Care Team Providers Care Assembly Mechanic Name Role Phone Long Dung Unavailable [phone] Problems Problem Type SNOMED Code ICD Code Onset Dates Problem Status W/U Status Risk Notes Problem Proteinuria (66158734) Proteinuria, unspecified (R80.9) Active confirmed Problem Benign prostatic hypertrophy without outflow obstruction (629145408) Benign prostatic hyperplasia without lower urinary tract symptoms (N40.0) Active confirmed Problem Calculus of kidney (56437461) Calculus of kidney (N20.0) Active confirmed Encounters Encounter Location Date Provider Diagnosis [place] [facility] 2043 [facility] 15 [place] [address] 11/25/2024 Dung Alves Chronic kidney disease, stage 2 (mild) N18.2 ; Essential (primary) hypertension I10 ; Type 2 diabetes mellitus without complications E11.9 ; Obesity, unspecified E66.9 ; Heart failure, unspecified I50.9 ; Proteinuria, unspecified R80.9 ; Benign prostatic hyperplasia without lower urinary tract symptoms N40.0 and Calculus of kidney N20.0 Assessments Encounter Date Diagnosis (ICD Code) Assessment Notes Treatment Notes Treatment Clinical Notes Section Notes 11/25/2024 Chronic kidney disease, stage 2 (mild) (ICD-10 - N18.2) 11/25/2024 Essential (primary) hypertension (ICD-10 - I10) 11/25/2024 Type 2 diabetes mellitus without complications (ICD-10 - E11.9) 11/25/2024 Obesity, unspecified (ICD-10 - E66.9) 11/25/2024 Heart failure, unspecified (ICD-10 - I50.9) 11/25/2024 Proteinuria, unspecified (ICD-10 - R80.9) 11/25/2024 Benign prostatic hyperplasia without lower urinary tract symptoms (ICD-10 - N40.0) 11/25/2024 Calculus of kidney (ICD-10 - N20.0) Plan Of Treatment No Information Progress Notes * Alexys COUCHDOB: [birth year] (60 yo F)Acc No.[id number]:11/25/2024 Progress Notes Patient: Alexys DAMICO Provider: Vee GOULD MD, F.A.C.P, F.A.S.N. :1965 A ge:59 Y S ex:Female Date:11/25/2024 Address:[address] [place] [address] Subjective: * Chief Complaints: * * Medical History: Objective: * Vitals: Assessment: * Assessment: 1. C hronic kidney disease, stage 2 (mild) - N18.2 (Primary) 2 . E ssential (primary) hypertension - I10 3 . T ype 2 diabetes mellitus without complications - E11.9 4 . O besity, unspecified - E66.9 5 . H eart failure, unspecified - I50.9 6 . P roteinuria, unspecified - R80.9 7 . B enign prostatic hyperplasia without lower urinary tract symptoms - N40.0 8 .?Calculus of kidney - N20.0 Plan: * Treatment: * Billing Information: * Visit Code: 56551 Office Visit, Est Pt., Level 5. * Procedure Codes: * Electronic signature of Venu Alves MD on 06/29/2025 at 12:26 PM CDT Sign off status: Pending * Provider: Vee GOULD MD, F.William.C.P, F.A.S.N. Date: 0 11/25/2024 Generated for Printing/Faxing/eTransmitting on: 1 12:26 PM CDT
--- OUTSIDE RECORDS SUMMARY | 2025-02-24 09:30 | XMS_ITS ---
Author Organization [facility] Address [address] [place] [address] Care Team Providers Care Certified Scrum Master Name Role Phone Dung Alves Unavailable [phone] Encounters Encounter Location Date Provider Diagnosis [place] [facility] 2043 [facility] 15 [place] [address] 02/24/2025 Dung Alves Chronic kidney disease, stage [...] * Alexys COUCHDOB: [birth year] (60 yo F)Acc No.[id number]:02/24/2025 Progress Notes Patient: Alexys DAMICO Provider: Vee GOULD MD, F.LucianaP, F.A.S.N. :1965 A ge:59 Y S ex:Female Date:02/24/2025 Address:[address] [place] [address] Subjective: * Chief Complaints: * * Medical [...] Treatment: * Billing Information: * Visit Code: 96875 Office Visit, Est Pt., Level 4. * Procedure Codes: * Electronic signature of Venu Alves MD on 06/29/2025 at 12:26 PM CDT Sign off status: Pending * Provider: Vee GOULD MD, John.William.Navid.P, F.A.S.N. Date: 0 02/24/2025 Generated for Printing/Faxing/eTransmitting on: 1 12:26 PM CDT
--- OUTSIDE RECORDS SUMMARY | 2025-06-29 12:27 | XMS_ITS | Clinical Summary ---
Author Organization [facility] Address [address] [place] [address] Care Team Providers Care Industrial Mechanic Name Role Phone Elmira Estevez SEGUNDO-SENIOR INTERNAL AUDITOR Primary Care Provider [phone] Source Comments [facility],non-owned Affiliates and Associated Physician Practices is amultiple site organization consisting of ambulatory clinics and hospital sitesin [place], [place], [place] and [place]. This disclosure is being madepursuant to the Care Everywhere program and may not contain all information available regarding this patient. Last updated 18.[facility] Allergies No known active allergies Medications * [...] Comments Blood Pressure 124/84 08/28/2023 12:30 PM RAISER HELPER Pulse 85 08/28/2023 12:30 PM RAISER HELPER Temperature 36.8 C (98.3 F) 08/28/2023 12:30 PM RAISER HELPER Respiratory Rate - - Oxygen Saturation 97% 08/28/2023 12:30 PM RAISER HELPER Inhaled Oxygen Concentration - - Weight 145.2 kg (320 lb) 08/28/2023 12:30 PM RAISER HELPER Height 182.9 cm (6') 08/28/2023 12:30 PM RAISER HELPER Body Mass Index 43.4 08/28/2023 12:30 PM RAISER HELPER Plan of Treatment Health Maintenance Due Date [...] of 2) 2016 SCREENING FOR DIABETES 07/26/2023 DEPRESSION SCREENING 09/09/2024 MEDICARE AWV CALENDAR YEAR 2024 COVID-19 VACCINE ( season) 2025 01/05/2021, 12/05/2020 INFLUENZA VACCINE (#1) 2025 3, 08/07/2022, 08/01/2021, [...] patient's age to complete this topic Insurance SELF PAY NO INSURANCE Member Subscriber Plan / Payer (Ef fective for All Dates) Name:Halima Couch Member ID:Not on file Relation to Subscriber:Not on file Name:HALIMA COUCH Subscriber ID:Not on file (Home) Address: [facility] [place] [address] Payer ID:Not on file Group ID:Not on file Type:Self Pay Address: [place], [place] [employer] MEDICARE MANAGED CARE MEDICARE ADV Care Teams Industrial Mechanic Relationship Specialty Start Date End Date Elmira Estevez APRN-ILIANA [address] [facility] [address] [place] [id number] PCP - General Nurse Practitioner Family 07/26/23
--- OUTSIDE RECORDS SUMMARY | 2025-06-29 12:27 | XMS_ITS | Patient Health Record ---
Author Organization [facility] Address [address] [place] [address] Care Team Providers Care Body Wirer Name Role Phone Long Dung Unavailable [phone] Reason For Referral No Information Medications Medication SIG (Take, Route, Frequency, Duration) Notes Start Date End Date Status Losartan Potassium 50 MG 1 tablet Orally Once a day; Duration: 90 12/06/2023 Active Calcitriol 0.25 MCG TAKE 1 CAPSULE BY MO UTH DAILY; Duration: 90 Active Vitamin D (Ergocalciferol) 1.25 MG (31791 UT) TAKE 1 CAPSULE BY MOUTH 2 TIMES A WEEK; Duration: 28 Activ e Problems Problem Type SNOMED Code ICD Code Onset Dates Problem Status W/U Status Risk Notes Problem Type II diabetes mellitus without complication (961860409) Type 2 diabetes mellitus without complications (E11.9) Active confirmed Problem Obesity (713363143) Obesity, unspecified (E66.9) Active confirmed Problem Essential hypertension (60001593) Essential (primary) hypertension (I10) Active confirmed Problem Heart failure (77310955) Heart failure, unspecified (I50.9) Active confirmed Problem Chronic kidney disease stage 2 (495801734) Chronic kidney disease, stage 2 (mild) (N18.2) Active confirmed Problem Calculus of kidney (42674366) Calculus of kidney (N20.0) Active confirmed Problem Proteinuria (37586545) Proteinuria, unspecified (R80.9) Active confirmed Problem Benign prostatic hypertrophy without outflow obstruction (937564662) Benign prostatic hyperplasia without lower urinary tract symptoms (N40.0) Active confirmed Encounters Encounter Location Date Provider Diagnosis [place] [facility] [address] [facility] [address] [place] [address] 08/19/2024 Dung Alves Chronic kidney disease, stage 2 (mild) N18.2 ; Type 2 diabetes mellitus without complications E11.9 ; Essential (primary) hypertension I10 and Proteinuria, unspecified R80.9 [facility] [address] [address] 11/25/2024 Dungnel Alves Chronic kidney disease, stage 2 (mild) N18.2 ; Essential (primary) hypertension I10 ; Type 2 diabetes mellitus without complications E11.9 ; Obesity, unspecified E66.9 ; Heart failure, unspecified I50.9 ; Proteinuria, unspecified R80.9 ; Benign prostatic hyperplasia without lower urinary tract symptoms N40.0 and Calculus of kidney N20.0 [facility] [address] [address] 02/24/2025 Dungnel Alves Chronic kidney disease, stage 2 (mild) [...] E66.9) 08/19/2024 Proteinuria, unspecified (ICD-10 - R80.9) 11/25/2024 Heart failure, unspecified (ICD-10 - I50.9) 02/24/2025 Heart failure, unspecified (ICD-10 - I50.9) 11/25/2024 Proteinuria, unspecified (ICD-10 - R80.9) 02/24/2025 Proteinuria, unspecified (ICD-10 - R80.9) 02/24/2025 Benign prostatic hyperplasia without lower urinary tract symptoms (ICD-10 - N40.0) 11/25/2024 Benign prostatic hyperplasia without lower urinary tract symptoms (ICD-10 - N40.0) 02/24/2025 Calculus of kidney (ICD-10 - N20.0) 11/25/2024 Calculus of kidney (ICD-10 - N20.0) Plan Of Treatment No Information
--- OUTSIDE RECORDS SUMMARY | 2025-06-29 12:27 | XMS_ITS | Clinical Summary ---
Author Organization [facility] Address [address], [facility] [address] [place] [address] Phone Care Team Providers Care Religion Department Chair Name Role Phone Ortiz Nava APRN, HEARING INSTRUMENT SPECIALIST Unavailable [phone] Javier Zhang MD Primary Care Provider Allergies [...] Description 02/15/2026 10:00 AM CDT Office Visit [facility] [address] [place] [address] Ortiz Nava, PIN FEATHER MACHINE OPERATOR, HEARING INSTRUMENT SPECIALIST [address] [place] [address] Health Maintenance Due Date Last Done Comments Hepatitis C Virus (HCV) Screening 1966 Hepatitis B Immunization (1 of 3 - 19+ 3-dose series) 1985 Cologuard 2011 Immunochemical Fecal Occult Blood 2011 Pneumococcal Immunization (50+ years) (1 of 1 - PCV) 2016 Welcome to Medicare (IPPE) G0402 09/09/2024 Influenza Immunization (#1) 2025 11/2 09/2023, 06/10/2023, 08/07/2022, Additional history exists SARS-COV-2 Immunization ( season) 2025 09/01/2021, 01/05/2021, 12/05/2020 Colonoscopy 03/29/2030 [...] 0.44 <4.00 ng/mL 01/04/2025 2:19 PM CDT [facility] Blood Venipuncture / Unknown 01/04/2025 12:14 PM CDT 01/04/2025 1:35 PM CDT Narrative [facility] - 01/04/2025 2:19 PM CDT The ALINITY Total PSA assay is a Chemiluminescent Microparticle Immunoassay (CMIA) for the quantitative determination of total PSA (both free PSA and PSA complexed to [id number]) in human serum. Total PSA values obtained with different assay methods, including Mccullough PSA assays, cannot be used interchangeably. Ortiz Nava APRN, ILIANA CHEMISTRY ORDERABLES F inal Result [facility] [address] [facility] [place] [address] from Last 3 Months or Most Recently Relevant to Health Maintenance Insurance MEDICARE C [employer] Care Teams Religion Department Chair Relationship Specialty Start Date End Date Javier Zhang MD [address] [place] [address] PCP - General Internal Medicine 01/04/25 Ortiz Nava APRN, HEARING INSTRUMENT SPECIALIST [address] [place] [address] Nurse Practitioner Advanced Practice Nurse 12/31/24
== END 2025-06-29 10:19 | disposition home or self-care (01) ==
LOC: ANHLAB 10:19
PROVIDERS: PCP Internal Medicine; Visit Provider Internal Medicine Gastroenterology
DX: K29.70 Gastritis, unspecified, without bleeding (principal); B96.81 Helicobacter pylori [H. pylori] as the cause of diseases classified elsewhere
CPT/HCPCS: 87338